=== PATIENT | male | born 1985 | race Caucasian/White ===

== ENCOUNTER 2022-07-20 06:48 | Emergency (ER) | payer SELFPAY ==
[2022-07-20] MEDS ORDERED: Albuterol 0.083% 2.5 MG/3 ML Neb Soln NEB ONE (07:12)
[2022-07-20] MEDS ORDERED: predniSONE 20 MG Tab PO ONE (07:12)
[2022-07-20] MEDS ORDERED: Albuterol/Ipratropium 3.0-0.5 MG/3 ML Neb Soln NEB ONE (07:12)
== END 2022-07-20 08:31 | disposition home or self-care (01) ==
LOC: FB.ED 06:48
DX: J45.901 Unspecified asthma with (acute) exacerbation (principal); Z72.0 Tobacco use
CPT/HCPCS: 99284; J7512; J7620